=== PATIENT | male | born 1965 | race Caucasian/White ===

== ENCOUNTER 2017-07-06 10:40 | Inpatient (IN) | payer BC ==
[~2017-07-06] VITALS: Ht 175.2 cm; Wt 100.7 kg
[~2017-07-06 10:40] MED LIST: GEODON60 MG PO; HYZAAR 50/12.5M1 TAB PO; KLONOPIN1 M1 PO; LAMICTAL100 MG PO; VITAMIN D1000 IU PO
[2017-07-06 12:35] VITALS: BP 141/74
[2017-07-06 12:38] LABS: BASO % 0.9 % (0.0-1.0); EOS # 0.1 10*3/uL (0.0-0.4); EOS % 2.1 % (1.0-4.0); HEMATOCRIT 40.7 % (42.0-52.0); HEMOGLOBIN 13.6 g/dl (14.0-18.0); LYMPH # 1.5 10*3/uL (1.3-4.4); LYMPH % 30.9 % (27.0-41.0); MEAN CELL VOLUME 87.3 fl (80.0-94.0); MEAN CORPUSCULAR HGB 29.2 pg (27.0-31.0); MEAN CORPUSCULAR HGB CONC 33.4 g/dl (33.0-37.0); MEAN PLATELET VOLUME 8.8 fl (9.6-12.3); MONO # 0.5 10*3/uL (0.1-1.0); MONO % 10.2 % (3.0-9.0); NEUT # 2.6 10*3/uL (2.3-7.9); NEUT % 55.3 % (47.0-73.0); PLATELET COUNT AUTOMATED 182 10*3/uL (130-400); RED BLOOD COUNT 4.66 10*6/uL (4.50-5.90); RED CELL DISTRI WIDTH 13.2 % (0-14.5); WHITE BLOOD COUNT 4.7 10*3/uL (4.8-10.8)
[2017-07-06 12:46] LABS: PROTHROMBIN TIME 10.1 SECONDS (9.0-12.4)
[2017-07-06 12:52] LABS: ALBUMIN 3.8 gm/dl (3.1-4.5); ALKALINE PHOSPHATASE 59 U/L (45-117); BILIRUBIN, TOTAL 0.2 mg/dl (0.2-1.0); BUN 11 mg/dl (7-24); CARBON DIOXIDE 25 mmol/L (21-32); CHLORIDE 107 mmol/L (98-107); EST GLOM FILT AFRICAN AMERICAN > 60 ml/min; GLUCOSE 93 mg/dL (65-99); POTASSIUM 4.1 mmol/L (3.5-5.1); SGOT/AST 31 IU/L (3-35); SGPT/ALT 41 U/L (12-78); SODIUM 140 mmol/L (136-145)
[2017-07-06] MEDS ORDERED: SEROQUEL100 MG PO (14:26)
[2017-07-06 16:00] VITALS: BP 133/68
[2017-07-06 18:15] LABS: BILIRUBIN NEGATIVE (NEGATIVE); BLOOD NEGATIVE (NEGATIVE); CLARITY SL CLOUDY (CLEAR); COLOR YELLOW (YELLOW); GLUCOSE NEGATIVE (NEGATIVE); KETONE NEGATIVE (NEGATIVE); LEUKO ESTERASE NEGATIVE (NEGATIVE); NITRITE NEGATIVE (NEGATIVE); PH 5.5 (5.0-9.0); PROTEIN NEGATIVE (NEGATIVE); SPECIFIC GRAVITY 1.025 (1.005-1.030); UROBILINOGEN 0.2 E.U./dl (0.2-1.0)
[2017-07-06 18:23] LABS: URINE AMPHETAMINES < 1000 (1000ng/ml); URINE BARBITURATES < 200 (200ng/ml); URINE COCAINE < 300 (300ng/ml)
[2017-07-06 18:28] LABS: BACTERIA 2+; EPITHELIAL CELLS 0-2; MUCOUS TRACE; RBC 0-2 rbc/hpf (0-2); URINE REFLEX COMMENT YES (NO); WBC 0-2 wbc/hpf (0-5)
[2017-07-06 20:23] VITALS: BP 122/70
[2017-07-07] VITALS: BP 131/69
[2017-07-07 08:00] VITALS: BP 124/84
[2017-07-07 16:00] VITALS: BP 122/79
[2017-07-07 20:00] VITALS: BP 110/66
[2017-07-08] VITALS: BP 110/70
[2017-07-08 08:00] VITALS: BP 134/72
[2017-07-08 12:00] VITALS: BP 131/77
[2017-07-08 16:00] VITALS: BP 113/60
[2017-07-08 20:00] VITALS: BP 133/69
[2017-07-09] VITALS: BP 147/85
[2017-07-09 06:58] LABS: BASO % 0.8 % (0.0-1.0); EOS # 0.1 10*3/uL (0.0-0.4); EOS % 2.3 % (1.0-4.0); HEMATOCRIT 40.4 % (42.0-52.0); HEMOGLOBIN 13.7 g/dl (14.0-18.0); LYMPH # 1.7 10*3/uL (1.3-4.4); LYMPH % 32.2 % (27.0-41.0); MEAN CELL VOLUME 88.6 fl (80.0-94.0); MEAN CORPUSCULAR HGB CONC 33.9 g/dl (33.0-37.0); MEAN PLATELET VOLUME 8.9 fl (9.6-12.3); MONO # 0.5 10*3/uL (0.1-1.0); MONO % 8.8 % (3.0-9.0); NEUT # 2.8 10*3/uL (2.3-7.9); NEUT % 55.1 % (47.0-73.0); PLATELET COUNT AUTOMATED 177 10*3/uL (130-400); RED BLOOD COUNT 4.56 10*6/uL (4.50-5.90); RED CELL DISTRI WIDTH 13.2 % (0-14.5); WHITE BLOOD COUNT 5.1 10*3/uL (4.8-10.8)
[2017-07-09 07:20] LABS: EST GLOM FILT AFRICAN AMERICAN > 60 ml/min
[2017-07-09 08:00] VITALS: BP 118/69
== END 2017-07-09 11:50 | disposition home or self-care (01) | DRG 897 ==
LOC: 5E 10:40
PROVIDERS: Internal Medicine
DX: F10.230 Alcohol dependence with withdrawal, uncomplicated (principal); I10 Essential (primary) hypertension; F32.9 Major depressive disorder, single episode, unspecified; E78.5 Hyperlipidemia, unspecified; F41.9 Anxiety disorder, unspecified; E66.09 Other obesity due to excess calories; Z90.49 Acquired absence of other specified parts of digestive tract; Z80.1 Family history of malignant neoplasm of trachea, bronchus and lung; Z82.49 Family history of ischemic heart disease and other diseases of the circulatory system; Z68.32 Body mass index [BMI] 32.0-32.9, adult

== ENCOUNTER 2017-10-13 09:56 | Emergency (ER) | payer SELFPAY ==
[~2017-10-13] VITALS: Ht 175.2 cm; Wt 104.3 kg
[~2017-10-13 09:56] MED LIST changes: +SEROQUEL100 MG PO
[2017-10-13 10:44] LABS: BASO % 0.6 % (0.0-1.0); EOS # 0.1 10*3/uL (0.0-0.4); EOS % 1.4 % (1.0-4.0); HEMATOCRIT 42.6 % (42.0-52.0); HEMOGLOBIN 14.4 g/dl (14.0-18.0); LYMPH # 1.2 10*3/uL (1.3-4.4); MEAN CELL VOLUME 86.2 fl (80.0-94.0); MEAN CORPUSCULAR HGB 29.1 pg (27.0-31.0); MEAN CORPUSCULAR HGB CONC 33.8 g/dl (33.0-37.0); MEAN PLATELET VOLUME 8.6 fl (9.6-12.3); MONO # 0.6 10*3/uL (0.1-1.0); MONO % 9.1 % (3.0-9.0); NEUT # 4.4 10*3/uL (2.3-7.9); NEUT % 69.3 % (47.0-73.0); PLATELET COUNT AUTOMATED 190 10*3/uL (130-400); RED BLOOD COUNT 4.94 10*6/uL (4.50-5.90); RED CELL DISTRI WIDTH 13.9 % (0-14.5); WHITE BLOOD COUNT 6.4 10*3/uL (4.8-10.8)
[2017-10-13 11:08] LABS: ALBUMIN 4.2 gm/dl (3.1-4.5); ALKALINE PHOSPHATASE 71 U/L (45-117); BUN 16 mg/dl (7-24); CHLORIDE 102 mmol/L (98-107); CREATININE 1.05 mg/dL (0.70-1.30); POTASSIUM 4.6 mmol/L (3.5-5.1); SGOT/AST 31 IU/L (3-35); SGPT/ALT 50 U/L (12-78); SODIUM 136 mmol/L (136-145); TOTAL PROTEIN 7.9 gm/dL (6.4-8.2)
== END 2017-10-13 11:49 | disposition home or self-care (01) ==
LOC: ED 09:56
PROVIDERS: Nurse Practitioner Family
DX: K52.9 Noninfective gastroenteritis and colitis, unspecified (principal); R03.0 Elevated blood-pressure reading, without diagnosis of hypertension; F10.10 Alcohol abuse, uncomplicated; Z79.899 Other long term (current) drug therapy; Z90.49 Acquired absence of other specified parts of digestive tract

== ENCOUNTER 2017-12-30 00:46 | Emergency (ER) | payer SELFPAY ==
[~2017-12-30] VITALS: Ht 175.2 cm; Wt 90.7 kg
[2017-12-30] MEDS ORDERED: NAPROSYN500 MG PO (02:11)
== END 2017-12-30 02:20 | disposition home or self-care (01) ==
LOC: ED 00:46
DX: S02.652A Fracture of angle of left mandible, initial encounter for closed fracture (principal); F17.200 Nicotine dependence, unspecified, uncomplicated; Z90.49 Acquired absence of other specified parts of digestive tract; Z79.899 Other long term (current) drug therapy; Y04.0XXA Assault by unarmed brawl or fight, initial encounter; Y93.89 Activity, other specified; Y92.89 Other specified places as the place of occurrence of the external cause; Y99.9 Unspecified external cause status

== ENCOUNTER → 2018-05-09 | Outpatient (CLI) | payer BC, OTHER ==
[~2018-05-09] MED LIST changes: +ANTI-DIARRHEAL2 MG PO; +FLONASE ALLERG9.9 ML NAS; +MINIPRESS2 M1 PO; +NAPROSYN500 MG PO; +PERCOCET 5-3251 EACH PO; +PROVENTIL HFA6.7 GM PO; +TRAZADONE HYDR100 MG PO
== END | disposition home or self-care (01) ==
LOC: RAD 07:19 → LAB 07:19 → US 07:30
DX: M51.37 Other intervertebral disc degeneration, lumbosacral region (principal); K80.20 Calculus of gallbladder without cholecystitis without obstruction; M25.78 Osteophyte, vertebrae; R19.7 Diarrhea, unspecified; R20.0 Anesthesia of skin

== ENCOUNTER → 2018-05-14 | Day surgery (SDC) | payer BC, OTHER ==
[~2018-05-14] VITALS: Ht 175.2 cm; Wt 111.1 kg
[2018-05-14 09:09] VITALS: BP 129/84
[2018-05-14 10:00] VITALS: BP 112/79
[2018-05-14 10:08] VITALS: BP 128/80
[2018-05-14 10:28] VITALS: BP 134/77
== END | disposition home or self-care (01) ==
LOC: SDC 05-11 08:00
DX: K29.50 Unspecified chronic gastritis without bleeding (principal); K21.9 Gastro-esophageal reflux disease without esophagitis; J45.909 Unspecified asthma, uncomplicated; F41.9 Anxiety disorder, unspecified; F31.9 Bipolar disorder, unspecified; E66.09 Other obesity due to excess calories; Z79.899 Other long term (current) drug therapy; Z87.19 Personal history of other diseases of the digestive system; Z68.36 Body mass index [BMI] 36.0-36.9, adult

== ENCOUNTER → 2018-05-21 | Day surgery (SDC) | payer BC, OTHER ==
[2018-05-21] VITALS (8 sets, daily range): BP systolic 122–179; BP diastolic 80–95
[~2018-05-21] VITALS: Ht 175.2 cm; Wt 109.3 kg
== END | disposition home or self-care (01) ==
LOC: SDC 05-17 10:15
DX: K80.10 Calculus of gallbladder with chronic cholecystitis without obstruction (principal); K66.0 Peritoneal adhesions (postprocedural) (postinfection); I10 Essential (primary) hypertension; J45.909 Unspecified asthma, uncomplicated; K21.9 Gastro-esophageal reflux disease without esophagitis; F41.9 Anxiety disorder, unspecified; F31.89 Other bipolar disorder; Z98.890 Other specified postprocedural states; Z87.19 Personal history of other diseases of the digestive system; Z79.899 Other long term (current) drug therapy

== ENCOUNTER 2020-05-19 13:03 | Inpatient (IN) | payer BC ==
[~2020-05-19] VITALS: Ht 175.2 cm; Wt 103.1 kg
[~2020-05-19 13:03] MED LIST changes: +KEFLEX500 M1 PO
[2020-05-19 14:40] VITALS: BP 165/95
--- NOTE | 2020-05-19 14:40 | NUR ---
54 year old MALE admitted to room # 526 for stabilization. Reports an addiction to ALCOHOL last used 12 hours prior to admission. Compliant with admission procedure. Patient denies any anxiety, but is unable to sit still, taps toes to floor continuously, looks about room, unable to focus eyes on nurse during interview. See assessment forms for additional information about patient status.
--- NOTE | 2020-05-19 14:45 | NUR ---
IV started BY ELIO JUAREZ RN.,PLACED left FOREARM with #22 protective cath after 1 attempts. Site prepped with Chloroprep. Sterile dressing applied. Patient tolerated procedure well.
[2020-05-19] MEDS ORDERED: COZAAR100 MG PO (14:47)
[2020-05-19] MEDS ORDERED: HYDR25T PO (14:48)
[2020-05-19] MEDS ORDERED: LAMOTRIGINE200 MG PO (14:49)
[2020-05-19] MEDS ORDERED: CLONAZEPAM1 MG PO (14:49)
--- NOTE | 2020-05-19 15:00 | NUR ---
HOME MEDS RECONCILED AT BEDSIDE WITH PT AND MED CLAIM HISTORY.
[2020-05-19 15:34] LABS: BASO # 0.1 10*3/uL (0.0-0.1); BASO % 0.7 % (0.0-1.0); EOS # 0.1 10*3/uL (0.0-0.4); EOS % 1.6 % (1.0-4.0); HEMATOCRIT 43.1 % (42.0-52.0); LYMPH # 1.6 10*3/uL (1.3-4.4); LYMPH % 21.5 % (27.0-41.0); MEAN CELL VOLUME 91.3 fl (80.0-94.0); MEAN CORPUSCULAR HGB 30.5 pg (27.0-31.0); MEAN CORPUSCULAR HGB CONC 33.4 g/dl (33.0-37.0); MEAN PLATELET VOLUME 8.9 fl (9.6-12.3); MONO # 0.6 10*3/uL (0.1-1.0); MONO % 7.9 % (3.0-9.0); NEUT # 5.2 10*3/uL (2.3-7.9); NEUT % 67.9 % (47.0-73.0); PLATELET COUNT AUTOMATED 169 10*3/uL (130-400); RED BLOOD COUNT 4.72 10*6/uL (4.50-5.90); RED CELL DISTRI WIDTH 12.7 % (0-14.5); WHITE BLOOD COUNT 7.6 10*3/uL (4.8-10.8)
--- NOTE | 2020-05-19 15:34 | NUR ---
PATIENT MEETS [facility]. CIWA=[id number]. PATIENT WANTS TO FOLLOW UP WITH AA MEETINGS FOR HIS AFTERCARE PLAN. POOL FAN B.A. YOUTH OFFICER
[2020-05-19 15:43] LABS: INTERNATIONAL NORM RATIO 0.9 (2.0-3.5)
[2020-05-19 15:43] LABS: URINE AMPHETAMINES < 1000 (1000ng/ml); URINE BARBITURATES < 200 (200ng/ml); URINE BENZODIAZEPINES < 200 (200ng/ml); URINE CANNABINOIDS (THC) < 50 (50ng/ml); URINE COCAINE < 300 (300ng/ml); URINE METHADONE < 300 (300ng/ml); URINE OPIATES < 300 (300ng/ml)
[2020-05-19 15:45] LABS: URINE PHENCYCLIDINE < 25 (25ng/ml)
[2020-05-19 15:46] LABS: BILIRUBIN NEGATIVE (NEGATIVE); BLOOD NEGATIVE (NEGATIVE); CLARITY CLEAR (CLEAR); COLOR YELLOW (YELLOW); GLUCOSE NEGATIVE (NEGATIVE); KETONE NEGATIVE (NEGATIVE); LEUKO ESTERASE NEGATIVE (NEGATIVE); NITRITE NEGATIVE (NEGATIVE); SPECIFIC GRAVITY 1.015 (1.005-1.030); UROBILINOGEN 0.2 E.U./dl (0.2-1.0)
[2020-05-19 15:47] LABS: BACTERIA TRACE; RBC 0-2 rbc/hpf (0-2)
[2020-05-19 15:53] LABS: ALBUMIN 3.8 gm/dl (3.1-4.5); ALKALINE PHOSPHATASE 77 U/L (45-117); BUN 11 mg/dl (7-24); CHLORIDE 102 mmol/L (98-107); CREATININE 0.87 mg/dL (0.70-1.30); POTASSIUM 3.9 mmol/L (3.5-5.1); SGOT/AST 34 IU/L (3-35); SGPT/ALT 59 U/L (12-78); SODIUM 135 mmol/L (136-145); TOTAL PROTEIN 7.7 gm/dL (6.4-8.2)
[2020-05-19 15:58] LABS: ETHYL ALCOHOL < 3.0 mg/dl (<3)
[2020-05-19 16:00] VITALS: BP 148/78
--- NOTE | 2020-05-19 16:50 | NUR ---
ATIVAN 1 MG GIVEN FOR S/S ALCOHOL WITHDRAWAL. PT ANXIOUS WITH TREMORS AND GOOSFLESH SKIN ON BILATERAL FOREARMS.ROBAXIN 750 MG GIVEN FOR C/O RESTLESS LEGAS.WILL CONTINUE TO MONITOR.VOICES NO OTHERS. CALL LIGHT IN REACH.
--- NOTE | 2020-05-19 17:56 | NUR ---
PT SITTING IN BED READING. NO NOTICEABLE S/S OF WITHDRAWAL.IV ATIVAN EFFECTIVE.PT VOICES NO NEEDS.
[2020-05-19 20:00] VITALS: BP 135/73
--- NOTE | 2020-05-19 20:20 | NUR ---
IN TO ASSESS PATIENT, PATIENT SLEEPING BUT AROUSES EASILY. STATES THAT HE FEELS PRETTY GOOD RIGHT NOW. JUST FINALLY GETTING SOME REST. NO TREMORS NOTED ON ASSESSMENT AT THIS TIME. BREATHING IS EASY AND REGULAR WITHOUT DISTRESS. PATIENT STATES HE GETS COLD AND HOT OFF AND ON AND THAT HE FEELS ANXIOUS AT TIMES, BUT CURRENTLY HE IS OK. NOTIFIED PATIENT OF PRN'S IF HE NEEDED ANY. BUT PATIENT DENIES AT THIS TIME. CALL LIGHT WITHIN REACH, WILL MONITOR
[2020-05-20] VITALS: BP 137/84
--- NOTE | 2020-05-20 02:42 | NUR ---
PATIENT SLEEPING, NO DISTRESS NOTED. BREATHING IS EASY AND REGULAR. CALL LIGHT WITHIN REACH, WILL MONITOR
--- NOTE | 2020-05-20 03:33 | NUR ---
24 HR chart check completed.
[2020-05-20] MEDS ORDERED: LOSARTAN POTASS50 M1 PO (07:45)
[2020-05-20 08:00] VITALS: BP 138/82; BP 138/88
--- NOTE | 2020-05-20 11:32 | NUR ---
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 PER DONTRELL GUILLEN CNP PT MAY TAKE OFF TO SHOWER BUT MUST PUT IT BACK ON FOR CONTINUOUS CARDIAC MONITORING.
[2020-05-20 12:00] VITALS: BP 140/80
--- NOTE | 2020-05-20 14:47 | NUR ---
[facility] STAFF IN TO SEE PATIENT. PROVIED PATIENT WITH REFERRAL OPTIONS. PATIENT IS STILL WANTING TO FOLLOW UP WITH HIS AA MEETINGS. POOL FAN B.A. MOTHER REPAIRER
[2020-05-20 16:00] VITALS: BP 148/92
--- NOTE | 2020-05-20 18:00 | NUR ---
Patient resting. Responding to scheduled medications with fewer complaints of pain and anxiety.
[2020-05-20 20:00] VITALS: BP 133/81
--- NOTE | 2020-05-20 20:00 | NUR ---
ALERT ORIENTED X3. NO C/O VOICED OF N/V/D,MUSCLE CRAMPS OR ANXIETY AT THIS TIME. SLIGHT MILD TREMORS NOTED WITH HANDS STRETCHED OUT. LUNG SOUNDS CLEAR ABD SOFT NORMAL ACTIVE BOWEL SOUNDS. NO EDEMA.
--- NOTE | 2020-05-20 23:43 | NUR ---
24 HR chart check completed.
[2020-05-21] VITALS: BP 123/57
--- NOTE | 2020-05-21 02:09 | NUR ---
SLEEPING. NO ACUTE DISTRESS NOTED.
--- NOTE | 2020-05-21 04:00 | NUR ---
SLEEPING. NO ACUTE DISTRESS NOTED.
[2020-05-21 08:00] VITALS: BP 128/74
--- NOTE | 2020-05-21 08:44 | NUR ---
PT RESTING IN BED. NO DISTRESS NOTED. WILL MONITOR
[2020-05-21 12:00] VITALS: BP 144/83
[2020-05-21 16:00] VITALS: BP 143/88
--- NOTE | 2020-05-21 16:08 | NUR ---
[facility] STAFF IN TO SEE PATIENT. PATIENT AGREES AND UNDERSTANDS HIS AFTERCARE PLAN. PATIENT IS GOING TO FOLLOW UP WITH AA MEETINGS IN HIS LOCAL AREA. POOL FAN B.A. COREMAKING MACHINE SETTER
[2020-05-21 20:00] VITALS: BP 121/78
[2020-05-22] VITALS: BP 129/75
[2020-05-22 06:28] LABS: BASO % 0.5 % (0.0-1.0); EOS # 0.1 10*3/uL (0.0-0.4); LYMPH # 1.7 10*3/uL (1.3-4.4); LYMPH % 27.7 % (27.0-41.0); MEAN CELL VOLUME 89.4 fl (80.0-94.0); MEAN CORPUSCULAR HGB 29.8 pg (27.0-31.0); MEAN CORPUSCULAR HGB CONC 33.3 g/dl (33.0-37.0); MEAN PLATELET VOLUME 9.2 fl (9.6-12.3); MONO # 0.7 10*3/uL (0.1-1.0); MONO % 10.7 % (3.0-9.0); NEUT # 3.6 10*3/uL (2.3-7.9); NEUT % 58.6 % (47.0-73.0); PLATELET COUNT AUTOMATED 157 10*3/uL (130-400); RED CELL DISTRI WIDTH 12.6 % (0-14.5); WHITE BLOOD COUNT 6.1 10*3/uL (4.8-10.8)
[2020-05-22 06:43] LABS: CREATININE 1.01 mg/dL (0.70-1.30)
[2020-05-22 08:00] VITALS: BP 126/84
--- NOTE | 2020-05-22 11:08 | NUR ---
Discharge instructions reviewed with patient/family. Patient receptive and verbalizes understanding. Follow-up care arranged. Written instructions given to patient/family. IV REMOVED. PATIENT LEFT IN CARE OF SELF. GABRIEL GOLDSMITH
== END 2020-05-22 11:08 | disposition home or self-care (01) | DRG 897 ==
LOC: 5E 13:03
PROVIDERS: Registered Nurse; ADMIT Internal Medicine
DX: F10.239 Alcohol dependence with withdrawal, unspecified (principal); E87.1 Hypo-osmolality and hyponatremia; I10 Essential (primary) hypertension; F41.9 Anxiety disorder, unspecified; F32.9 Major depressive disorder, single episode, unspecified; E78.5 Hyperlipidemia, unspecified; Z82.49 Family history of ischemic heart disease and other diseases of the circulatory system; Z81.8 Family history of other mental and behavioral disorders; Z80.1 Family history of malignant neoplasm of trachea, bronchus and lung; Z88.8 Allergy status to other drugs, medicaments and biological substances; Z79.899 Other long term (current) drug therapy

== ENCOUNTER → 2020-08-11 | Outpatient (CLI) | payer BC ==
[~2020-08-11] MED LIST changes: +CLONAZEPAM1 MG PO; +COZAAR100 MG PO; +HYDR25T PO; +LAMOTRIGINE200 MG PO; +LOSARTAN POTASS50 M1 PO
== END | disposition home or self-care (01) ==
LOC: COVID19 00:24
PROVIDERS: ATTEND Internal Medicine
DX: Z20.828 Contact with and (suspected) exposure to other viral communicable diseases (principal)

== ENCOUNTER → 2020-10-29 | Outpatient (CLI) | payer OTHER | END | disposition home or self-care (01) | LOC: COVID19 09:27 | PROVIDERS: ATTEND Physician Assistant | DX: U07.1 COVID-19 (principal) ==

== ENCOUNTER 2021-05-01 00:43 | Emergency (ER) | payer OTHER ==
[~2021-05-01] VITALS: Ht 175.2 cm; Wt 106.6 kg
== END 2021-05-01 03:32 | disposition home or self-care (01) ==
LOC: ED 00:43
DX: S00.12XA Contusion of left eyelid and periocular area, initial encounter (principal); Z88.8 Allergy status to other drugs, medicaments and biological substances; Z79.899 Other long term (current) drug therapy; Z90.49 Acquired absence of other specified parts of digestive tract; Z90.89 Acquired absence of other organs; Y04.2XXA Assault by strike against or bumped into by another person, initial encounter; Y93.89 Activity, other specified; Y92.89 Other specified places as the place of occurrence of the external cause; Y99.8 Other external cause status

== ENCOUNTER → 2021-09-21 | Outpatient (CLI) | payer BC | END | disposition home or self-care (01) | LOC: COVID19 15:03 | PROVIDERS: ATTEND Internal Medicine | DX: Z11.52 Encounter for screening for COVID-19 (principal) ==

== ENCOUNTER → 2021-11-11 | Outpatient (CLI) | payer BC | END | disposition home or self-care (01) | LOC: COVID19 16:24 | PROVIDERS: ATTEND Internal Medicine | DX: Z20.822 Contact with and (suspected) exposure to COVID-19 (principal) ==

== ENCOUNTER → 2022-04-21 | Day surgery (SDC) | payer BC ==
[2022-04-19 09:42] LABS: BUN 8 mg/dl (7-24); CHLORIDE 102 mmol/L (98-107); CREATININE 0.87 mg/dL (0.70-1.30); POTASSIUM 3.8 mmol/L (3.5-5.1); SODIUM 135 mmol/L (136-145)
[~2022-04-21] VITALS: Ht 175.2 cm; Wt 108.9 kg
[2022-04-21 07:08] VITALS: BP 125/82
[2022-04-21 07:51] VITALS: BP 128/84
[2022-04-21 08:06] VITALS: BP 129/87
[2022-04-21 08:21] VITALS: BP 155/92
== END | disposition home or self-care (01) ==
LOC: SDC 04-19 08:00
PROVIDERS: ATTEND Orthopaedic Surgery
DX: G56.03 Carpal tunnel syndrome, bilateral upper limbs (principal); G62.1 Alcoholic polyneuropathy; F41.9 Anxiety disorder, unspecified; J45.909 Unspecified asthma, uncomplicated; K21.9 Gastro-esophageal reflux disease without esophagitis; F32.9 Major depressive disorder, single episode, unspecified; I10 Essential (primary) hypertension; Z79.899 Other long term (current) drug therapy

== ENCOUNTER → 2022-08-11 | Day surgery (SDC) | payer BC ==
[~2022-08-11] VITALS: Ht 175.2 cm; Wt 108.9 kg
[~2022-08-11] MED LIST changes: +(NONE)4 GM PO; +DAILY VALUE1 EACH PO; +RECTIV30 GM R; +VITAMIN D350 MCG PO
[2022-08-11 06:40] VITALS: BP 128/76
[2022-08-11 08:30] VITALS: BP 128/71
[2022-08-11 08:45] VITALS: BP 138/93
[2022-08-11 08:58] VITALS: BP 158/97
== END | disposition home or self-care (01) ==
LOC: SDC 08-08 08:45
PROVIDERS: ATTEND Surgery
DX: Z12.11 Encounter for screening for malignant neoplasm of colon (principal); K57.30 Diverticulosis of large intestine without perforation or abscess without bleeding; K60.1 Chronic anal fissure; K21.9 Gastro-esophageal reflux disease without esophagitis; I10 Essential (primary) hypertension; F41.9 Anxiety disorder, unspecified; F32.9 Major depressive disorder, single episode, unspecified; Z79.899 Other long term (current) drug therapy

== ENCOUNTER → 2022-12-02 | Outpatient (CLI) | payer BC | END | disposition home or self-care (01) | LOC: LAB 07:03 | PROVIDERS: ATTEND Internal Medicine | DX: R05.9 Cough, unspecified (principal) ==

== ENCOUNTER 2023-04-03 13:22 | Inpatient (IN) | payer BC ==
[2023-04-03] VITALS: BP 171/76
[~2023-04-03] VITALS: Ht 175.2 cm; Wt 98.5 kg
[2023-04-03 14:12] VITALS: BP 131/78
[2023-04-03 16:00] VITALS: BP 162/91; BP 171/76
[2023-04-03 16:42] LABS: BASO # 0.1 10*3/uL (0.0-0.1); BASO % 1.1 % (0.0-1.0); EOS # 0.1 10*3/uL (0.0-0.4); EOS % 1.7 % (1.0-4.0); LYMPH # 1.5 10*3/uL (1.3-4.4); LYMPH % 27.6 % (27.0-41.0); MEAN CELL VOLUME 92.1 fl (80.0-94.0); MEAN CORPUSCULAR HGB 32.9 pg (27.0-31.0); MEAN CORPUSCULAR HGB CONC 35.7 g/dl (33.0-37.0); MEAN PLATELET VOLUME 8.3 fl (9.6-12.3); MONO # 0.3 10*3/uL (0.1-1.0); MONO % 5.8 % (3.0-9.0); NEUT # 3.4 10*3/uL (2.3-7.9); NEUT % 63.4 % (47.0-73.0); PLATELET COUNT AUTOMATED 187 10*3/uL (130-400); RED BLOOD COUNT 4.56 10*6/uL (4.50-5.90); RED CELL DISTRI WIDTH 12.7 % (0-14.5); WHITE BLOOD COUNT 5.4 10*3/uL (4.8-10.8)
[2023-04-03 17:09] LABS: ALKALINE PHOSPHATASE 105 U/L (46-116); CHLORIDE 96 mmol/L (98-107); LIPASE 49 U/L (12-53); POTASSIUM 3.8 mmol/L (3.4-5.1); SGPT/ALT 238 U/L (10-49); TOTAL PROTEIN 7.9 gm/dL (6.0-8.0)
[2023-04-03 17:11] LABS: BUN < 5 mg/dl (9-23)
[2023-04-03] MEDS ORDERED: TRAZODONE50 MG PO (18:18)
[2023-04-03 18:30] VITALS: BP 162/91
[2023-04-03 18:33] LABS: BILIRUBIN Negative (Negative); BLOOD Negative (Negative); CLARITY Clear (Clear); COLOR Yellow (Yellow); GLUCOSE Negative (Negative); KETONE Trace (Negative); LEUKO ESTERASE Negative (Negative); NITRITE Negative (Negative); SPECIFIC GRAVITY <= 1.005 (1.001-1.030)
[2023-04-03] MEDS ORDERED: COZAAR50 M1 PO (18:39)
[2023-04-03] MEDS ORDERED: HYDROCHLOROTH12.5 M3 PO (18:39)
[2023-04-03 18:41] LABS: URINE AMPHETAMINES Negative (1000ng/ml); URINE BARBITURATES Negative (200ng/ml); URINE BENZODIAZEPINES Negative (200ng/ml); URINE CANNABINOIDS (THC) Negative (50ng/ml); URINE COCAINE Negative (300ng/ml); URINE METHADONE Negative (300ng/ml); URINE OPIATES Negative (300ng/ml); URINE PHENCYCLIDINE Negative (25ng/ml)
[2023-04-03 18:42] LABS: RBC 0-2 rbc/hpf (0-2)
[2023-04-03 18:43] LABS: BACTERIA TRACE
[2023-04-03 20:00] VITALS: BP 141/72
[2023-04-03] MEDS ORDERED: CLONAZEPAM1 MG PO (21:24)
[2023-04-03] MEDS ORDERED: LAMOTRIGINE100 MG PO (21:25)
[2023-04-04] VITALS: BP 171/76
[2023-04-04 06:38] LABS: BASO % 0.9 % (0.0-1.0); EOS # 0.1 10*3/uL (0.0-0.4); EOS % 1.5 % (1.0-4.0); LYMPH # 1.2 10*3/uL (1.3-4.4); LYMPH % 24.7 % (27.0-41.0); MEAN CELL VOLUME 92.8 fl (80.0-94.0); MEAN CORPUSCULAR HGB 32.3 pg (27.0-31.0); MEAN CORPUSCULAR HGB CONC 34.8 g/dl (33.0-37.0); MEAN PLATELET VOLUME 8.7 fl (9.6-12.3); MONO # 0.4 10*3/uL (0.1-1.0); NEUT % 63.5 % (47.0-73.0); PLATELET COUNT AUTOMATED 152 10*3/uL (130-400); RED BLOOD COUNT 4.31 10*6/uL (4.50-5.90); RED CELL DISTRI WIDTH 12.7 % (0-14.5); WHITE BLOOD COUNT 4.7 10*3/uL (4.8-10.8)
[2023-04-04 07:35] LABS: ALKALINE PHOSPHATASE 86 U/L (46-116); BUN 8 mg/dl (9-23); CHLORIDE 102 mmol/L (98-107); POTASSIUM 4.3 mmol/L (3.4-5.1); SGPT/ALT 176 U/L (10-49); TOTAL PROTEIN 6.8 gm/dL (6.0-8.0)
[2023-04-04 08:00] VITALS: BP 159/82
[2023-04-04 12:00] VITALS: BP 149/84
[2023-04-04 16:00] VITALS: BP 153/89
[2023-04-04 20:00] VITALS: BP 146/93
[2023-04-05] VITALS: BP 145/79
[2023-04-05 08:00] VITALS: BP 138/83
[2023-04-05 12:00] VITALS: BP 133/81
[2023-04-05 16:00] VITALS: BP 151/77
[2023-04-05 20:00] VITALS: BP 151/89
[2023-04-06] VITALS: BP 151/74
[2023-04-06 08:00] VITALS: BP 141/86
[2023-04-06] MEDS ORDERED: ONDANSETRON HYDR4 M1 PO (08:12)
[2023-04-06] MEDS ORDERED: METHOCARBAMOL750 M1 PO (08:13)
[2023-04-06] MEDS ORDERED: DICYCLOMINE HYD20 MG PO (08:13)
== END 2023-04-06 09:20 | disposition home or self-care (01) | DRG 897 ==
LOC: ED 13:22 → EDHOLD 16:38 → 5E 16:38 → 4E 17:47 → 5E 21:27
PROVIDERS: Family Medicine; Internal Medicine; ADMIT Internal Medicine; ATTEND Internal Medicine
DX: F10.239 Alcohol dependence with withdrawal, unspecified (principal); E87.1 Hypo-osmolality and hyponatremia; F32.A Depression, unspecified; E78.5 Hyperlipidemia, unspecified; I10 Essential (primary) hypertension; E87.8 Other disorders of electrolyte and fluid balance, not elsewhere classified; R73.9 Hyperglycemia, unspecified; F17.220 Nicotine dependence, chewing tobacco, uncomplicated; Z88.8 Allergy status to other drugs, medicaments and biological substances; Z90.49 Acquired absence of other specified parts of digestive tract; Z80.1 Family history of malignant neoplasm of trachea, bronchus and lung; Z81.8 Family history of other mental and behavioral disorders; Z82.49 Family history of ischemic heart disease and other diseases of the circulatory system; Z71.6 Tobacco abuse counseling

== ENCOUNTER 2024-01-15 09:45 | Emergency (ER) | payer BC ==
[~2024-01-15] VITALS: Ht 175.2 cm; Wt 111.1 kg
[~2024-01-15 09:45] MED LIST changes: +COZAAR50 M1 PO; +DICYCLOMINE HYD20 MG PO; +HYDROCHLOROTH12.5 M3 PO; +LAMOTRIGINE100 MG PO; +METHOCARBAMOL750 M1 PO; +ONDANSETRON HYDR4 M1 PO; +TRAZODONE50 MG PO
[2024-01-15 10:47] LABS: BASO % 0.6 % (0.0-1.0); EOS % 0.5 % (1.0-4.0); HEMATOCRIT 43.9 % (42.0-52.0); LYMPH # 1.7 10*3/uL (1.3-4.4); LYMPH % 25.9 % (27.0-41.0); MEAN CELL VOLUME 92.8 fl (80.0-94.0); MEAN CORPUSCULAR HGB 31.1 pg (27.0-31.0); MEAN CORPUSCULAR HGB CONC 33.5 g/dl (33.0-37.0); MEAN PLATELET VOLUME 8.6 fl (9.6-12.3); MONO # 0.5 10*3/uL (0.1-1.0); MONO % 7.7 % (3.0-9.0); NEUT # 4.3 10*3/uL (2.3-7.9); PLATELET COUNT AUTOMATED 213 10*3/uL (130-400); RED BLOOD COUNT 4.73 10*6/uL (4.50-5.90); RED CELL DISTRI WIDTH 12.3 % (0-14.5); WHITE BLOOD COUNT 6.6 10*3/uL (4.8-10.8)
[2024-01-15 10:58] LABS: ACT PARTIAL THROMBO TIME 29.3 SECONDS (20.0-32.1)
[2024-01-15 11:10] LABS: ALKALINE PHOSPHATASE 88 U/L (46-116); BUN 7 mg/dl (9-23); CHLORIDE 102 mmol/L (98-107); LIPASE 40 U/L (12-53); POTASSIUM 3.6 mmol/L (3.4-5.1); SGPT/ALT 28 U/L (5-49); TOTAL PROTEIN 7.8 gm/dL (6.0-8.0)
[2024-01-15] MEDS ORDERED: SODIUM CHLORIDE 0.9% 1,000 ML IV ONE (11:10)
[2024-01-15 11:19] LABS: BILIRUBIN Negative (Negative); BLOOD Negative (Negative); CLARITY Clear (Clear); COLOR Yellow (Yellow); GLUCOSE Negative (Negative); KETONE Negative (Negative); LEUKO ESTERASE Negative (Negative); NITRITE Negative (Negative); PH 5.5 (4.5-8.0); SPECIFIC GRAVITY <= 1.005 (1.001-1.030); UROBILINOGEN 0.2 E.U./dl (0.0-1.0)
[2024-01-15 11:35] LABS: BACTERIA TRACE; EPITHELIAL CELLS 0-2; RBC 0-2 rbc/hpf (0-2); WBC 0-2 wbc/hpf (0-5)
== END 2024-01-15 15:14 | disposition home or self-care (01) ==
LOC: ED 09:45
PROVIDERS: Internal Medicine
DX: K60.2 Anal fissure, unspecified (principal); I10 Essential (primary) hypertension; F41.9 Anxiety disorder, unspecified; F32.A Depression, unspecified; K21.9 Gastro-esophageal reflux disease without esophagitis; Z88.8 Allergy status to other drugs, medicaments and biological substances; Z90.49 Acquired absence of other specified parts of digestive tract; Z90.89 Acquired absence of other organs; Z98.890 Other specified postprocedural states

== ENCOUNTER → 2024-05-13 | Outpatient (CLI) | payer BC ==
[2024-05-13 08:02] LABS: BASO % 0.7 % (0.0-1.0); EOS # 0.1 10*3/uL (0.0-0.4); EOS % 1.7 % (1.0-4.0); HEMATOCRIT 41.5 % (42.0-52.0); LYMPH % 35.1 % (27.0-41.0); MEAN CELL VOLUME 88.9 fl (80.0-94.0); MEAN CORPUSCULAR HGB 30.2 pg (27.0-31.0); MEAN PLATELET VOLUME 8.8 fl (9.6-12.3); MONO # 0.5 10*3/uL (0.1-1.0); MONO % 8.9 % (3.0-9.0); NEUT % 53.1 % (47.0-73.0); PLATELET COUNT AUTOMATED 220 10*3/uL (130-400); RED BLOOD COUNT 4.67 10*6/uL (4.50-5.90); WHITE BLOOD COUNT 5.7 10*3/uL (4.8-10.8)
[2024-05-13 08:31] LABS: ALKALINE PHOSPHATASE 74 U/L (46-116); BUN 9 mg/dl (9-23); CHLORIDE 106 mmol/L (98-107); CHOLESTEROL 168 mg/dL (<200); LDL CHOLESTEROL 95 mg/dL (9-159); POTASSIUM 4.7 mmol/L (3.4-5.1); SGPT/ALT 26 U/L (5-49); TOTAL PROTEIN 7.2 gm/dL (6.0-8.0); TRIGLYCERIDES 110 mg/dl (<150)
== END | disposition home or self-care (01) ==
LOC: LAB 07:24
PROVIDERS: ATTEND Nurse Practitioner Family
DX: Z13.220 Encounter for screening for lipoid disorders (principal); I10 Essential (primary) hypertension; E55.9 Vitamin D deficiency, unspecified

== ENCOUNTER → 2024-07-02 | Outpatient (CLI) | payer BC | END | disposition home or self-care (01) | LOC: RAD 15:34 | PROVIDERS: ATTEND Nurse Practitioner Family | DX: M25.571 Pain in right ankle and joints of right foot (principal) ==

== ENCOUNTER → 2024-08-12 | Outpatient (CLI) | payer OTHER, BC | END | disposition home or self-care (01) | LOC: RAD 07:12 | PROVIDERS: ATTEND Family Medicine | DX: M50.322 Other cervical disc degeneration at C5-C6 level (principal); M50.323 Other cervical disc degeneration at C6-C7 level; M50.31 Other cervical disc degeneration, high cervical region; M25.78 Osteophyte, vertebrae ==

== ENCOUNTER → 2024-10-28 | Outpatient (CLI) | payer BC | END | disposition home or self-care (01) | LOC: RHCWE 17:57 | PROVIDERS: ATTEND Nurse Practitioner Family | DX: R05.1 Acute cough (principal) ==

== ENCOUNTER 2024-12-10 11:56 | Emergency (ER) | payer BC ==
[~2024-12-10] VITALS: Ht 175.2 cm; Wt 104.3 kg
[~2024-12-10 11:56] MED LIST changes: +AZELASTINE137 MCG/0. NAS; +LOSARTAN POTAS100 M1 PO; +NORVASC2.5 MG PO
[2024-12-10] MEDS ORDERED: DULOXETINE HCL20 MG PO (12:37)
== END 2024-12-10 13:26 | disposition home or self-care (01) ==
LOC: ED 11:56
DX: S63.617A Unspecified sprain of left little finger, initial encounter (principal); E87.1 Hypo-osmolality and hyponatremia; F41.9 Anxiety disorder, unspecified; F32.A Depression, unspecified; I10 Essential (primary) hypertension; E78.5 Hyperlipidemia, unspecified; K21.9 Gastro-esophageal reflux disease without esophagitis; F17.220 Nicotine dependence, chewing tobacco, uncomplicated; Z88.8 Allergy status to other drugs, medicaments and biological substances; Z90.89 Acquired absence of other organs; Z90.49 Acquired absence of other specified parts of digestive tract; Z98.890 Other specified postprocedural states; W22.8XXA Striking against or struck by other objects, initial encounter; Y93.89 Activity, other specified; Y92.89 Other specified places as the place of occurrence of the external cause; Y99.8 Other external cause status

== ENCOUNTER → 2025-03-05 | Outpatient (CLI) | payer OTHER, BC ==
[~2025-03-05] MED LIST changes: +DULOXETINE HCL20 MG PO
== END | disposition home or self-care (01) ==
LOC: CT 00:25
PROVIDERS: ATTEND Family Medicine
DX: S13.4XXA Sprain of ligaments of cervical spine, initial encounter (principal); M48.02 Spinal stenosis, cervical region; M25.78 Osteophyte, vertebrae; M47.812 Spondylosis without myelopathy or radiculopathy, cervical region; X58.XXXA Exposure to other specified factors, initial encounter; Y93.89 Activity, other specified; Y92.89 Other specified places as the place of occurrence of the external cause; Y99.8 Other external cause status

== ENCOUNTER → 2025-08-07 | Day surgery (SDC) | payer BC ==
[2025-08-05 16:03] LABS: BUN 16 mg/dl (9-23)
[~2025-08-07] VITALS: Ht 175.2 cm; Wt 108.9 kg
[~2025-08-07] MED LIST changes: +Lactated Ringer's Solution 1,000 ML IV ONE; +Lidocaine Hydrochloride 2% 5 ML SDV IV ONE; +Lidocaine Hydrochloride 30 ML VIAL ONE; +MIRTAZAPINE15 M2 PO; +PROPOFOL 200 MG/20 ML VIAL IV ONE; +ceFAZolin sodium/sodium chlor 20 ML IV ONE
[2025-08-07 08:17] VITALS: BP 113/69
[2025-08-07 09:35] VITALS: BP 114/77
[2025-08-07 09:50] VITALS: BP 115/66
[2025-08-07 10:05] VITALS: BP 118/75
== END | disposition home or self-care (01) ==
LOC: SDC 08-05 08:45
PROVIDERS: ATTEND Orthopaedic Surgery
DX: G56.02 Carpal tunnel syndrome, left upper limb (principal); F41.9 Anxiety disorder, unspecified; I10 Essential (primary) hypertension; F31.9 Bipolar disorder, unspecified; E78.5 Hyperlipidemia, unspecified; Z98.890 Other specified postprocedural states; Z90.89 Acquired absence of other organs; Z79.899 Other long term (current) drug therapy; Z88.8 Allergy status to other drugs, medicaments and biological substances